=== PATIENT | male | born 1940 | race Caucasian/White ===

== ENCOUNTER → 2017-11-13 | Outpatient (CLI) | payer MEDICARE ==
--- NOTE | 2017-11-13 10:25 | RADIOLOGY IMAGING REPORT ---
FACILITY: [facility] - [place] PATIENT NAME: Cem Simeon : 1940 MR: [id number] V: [id number] EXAM DATE: ORDERING PHYSICIAN: YOBANI WOLFE TECHNOLOGIST: Location: [facility] Patient: Cem Simeon : 1940 Visit/Account:[id number] Date of Sevice: 11/13/2017 DEXA Scan Clinical history: Osteoporosis. Comparison: DEXA scan from 3 x 15. LUMBAR SPINE: The bone mineral density (BMD) measured from L1-L4 correlates with a Z-score of 1.3 and a T-score of 0.2 which is Normal as defined by the World Health Organization. The corresponding risk of fracture in the lumbar spine is Not increased compared with a young adult reference population. This value suresh s increased by 4.4 % since the prior study. More than 5% change is considered significant. HIP: Bone mineral density (BMD) measured in the LEFT total hip region correlates with a Z-score -1.3 and a T-score of -2.6 which is osteoporosis as defined by the World Health Organization. The correspondin g risk of fracture in the hip is 6-8 times increased compared to a young adult reference population. This value has decreased by 4.2 % since the prior study. More than 5% change is considered significa nt. Bone mineral density left femoral neck -2.4 Bone mineral density (BMD) measured in the Femoral Neck region measures 0.761 g/cm?. IMPRESSION: 1. Lumbar spine: Normal. There has been 4.4% increase in the bone mineral density since the previou s exam. 2. Left Total Hip: Osteoporosis. There has been 4.2% decrease in the bone mineral density since the previous exam. 3. Femoral Neck: Bone Mineral Density is 0.761 g/cm? The next DEXA scan of this patient should include the following sites: L1-L4 and the left hip. FRAX? WHO Fracture Risk Assessment Tool link: <http://www.shef.ac.uk/FRAX/tool.jsp?locationValue=9> PLEASE NOTE: 1) The World Health Organization defines low BMD as follows: T-score Normal > -1 Osteopenia < -1 and > -2.5 Osteoporosis < -2.5 without fractures Established osteoporosis < -2.5 with fractures 2) In general, you may wish to consider: Diagnosis Treatment Follow-up DEXA Normal BMD Prevention 2-3 years Osteopenia Prevention/therapy 1-2 years Osteoporosis Therapy Yearly 3) Fracture risk estimated from the T-score is more accurate for vertebral fractures (often spontane ous) than for hip fractures. Report Dictated By: Winnie Deshpande MD at 11/13/2017 9:49 AM Report E-Signed By: Winnie Deshpande MD at 11/13/2017 10:20 AM WSN:[email or web address]
== END ==
LOC: RAD 07:01
PROVIDERS: ATTEND Family Medicine
DX: Z13.820 Encounter for screening for osteoporosis (principal); M81.0 Age-related osteoporosis without current pathological fracture
CPT/HCPCS: 77080

== ENCOUNTER → 2017-12-22 | Outpatient (CLI) | payer MEDICARE ==
[~2017-12-22] MED LIST: DENOSUMAB 60 MG/1 ML SYR SUBQ ONE
[2017-12-22 09:32] VITALS: BP 116/82
== END ==
LOC: SPU 07:43
PROVIDERS: ATTEND Family Medicine
DX: M81.0 Age-related osteoporosis without current pathological fracture (principal)
CPT/HCPCS: 96372; J0897

== ENCOUNTER → 2018-06-22 | Outpatient (CLI) | payer MEDICARE ==
[2018-06-22 08:11] VITALS: BP 111/68
== END ==
LOC: SPU 07:12
PROVIDERS: ATTEND Family Medicine
DX: M81.0 Age-related osteoporosis without current pathological fracture (principal)
CPT/HCPCS: 96372; J0897

== ENCOUNTER → 2018-11-17 | Outpatient (CLI) | payer MEDICARE ==
--- NOTE | 2018-11-17 15:06 | RADIOLOGY IMAGING REPORT ---
[place] [facility] [place]: Cem Simeon : 1940 MR: [id number] V: [id number] EXAM DATE: ORDERING PHYSICIAN: YOBANI WOLFE TECHNOLOGIST: [place] [facility] [place]: Cem Simeon : 1940 Visit/Account:[id number] Date of Sevice: 11/17/2018 DEXA Scan Clinical history: Osteoporosis. Comparison: DEXA scan from 11/13/2017. LUMBAR SPINE: The bone mineral density (BMD) measured from L1-L4 correlates with a Z-score of 2.2 and a T-score of 1.1 which is Normal as defined by the World Health Organization. The corresponding risk of fracture in the lumbar spine is Not increased compared with a young adult reference population. This value suresh s increased by 9.1 % since the prior study. More than 5% change is considered significant. HIP: Bone mineral density (BMD) measured in the LEFT total hip region correlates with a Z-score -1.2 and a T-score of -2.6 which is osteoporosis as defined by the World Health Organization. The correspondin g risk of fracture in the hip is 6-8 times increased compared to a young adult reference population. This value has increased by 1.1 % since the prior study. More than 5% change is considered significa nt. T score left femoral neck -2.7 Bone mineral density (BMD) measured in the Femoral Neck region measures 0.714 g/cm?. IMPRESSION: 1. Lumbar spine: Normal. There has been 9.1% increase in the bone mineral density since the previou s exam. 2. Left Total Hip: Osteoporosis. There has been 1.1% increase in the bone mineral density since the previous exam. 3. Femoral Neck: Bone Mineral Density is 0.714 g/cm? The next DEXA scan of this patient should include the following sites: L1-L4 and the left hip. FRAX? WHO Fracture Risk Assessment Tool link: <http://www.shef.ac.uk/FRAX/tool.jsp?locationValue=9> PLEASE NOTE: 1) The World Health Organization defines low BMD as follows: T-score Normal > -1 Osteopenia < -1 and > -2.5 Osteoporosis < -2.5 without fractures Established osteoporosis < -2.5 with fractures 2) In general, you may wish to consider: Diagnosis Treatment Follow-up DEXA Normal BMD Prevention 2-3 years Osteopenia Prevention/therapy 1-2 years Osteoporosis Therapy Yearly 3) Fracture risk estimated from the T-score is more accurate for vertebral fractures (often spontane ous) than for hip fractures. Report Dictated By: Winnie Deshpande MD at 11/17/2018 2:59 PM Report E-Signed By: Winnie Deshpande MD at 11/17/2018 3:01 PM WSN:[email or web address]
== END ==
LOC: RAD 02:14
PROVIDERS: ATTEND Family Medicine
DX: M81.0 Age-related osteoporosis without current pathological fracture (principal)
CPT/HCPCS: 77080

== ENCOUNTER → 2018-12-21 | Outpatient (CLI) | payer MEDICARE ==
[2018-12-21 08:27] VITALS: BP 135/59
== END ==
LOC: SPU 08:08
PROVIDERS: ATTEND Family Medicine
DX: M81.0 Age-related osteoporosis without current pathological fracture (principal)
CPT/HCPCS: 96372; J0897

== ENCOUNTER 2019-01-21 00:56 | Observation (INO) | payer MEDICARE ==
[2019-01-21] VITALS (25 sets, daily range): BP systolic 128–170; BP diastolic 52–81
[~2019-01-21] VITALS: Ht 162.6 cm; Wt 63.5 kg
[~2019-01-21 00:56] MED LIST changes: +ACETAMINOPHEN 500 MG TAB PO ONE; +ASPI81TA94 PO; +CALC-83 PO; +CHOL200074 PO; +DEN60I SUBQ; -DENOSUMAB 60 MG/1 ML SYR SUBQ ONE; +DILT240C4 PO; +LUTE20CA11 PO; +PREGABALIN 150 MG CAPSULE PO ONE; +SIMV-49 PO; +ceFAZolin(*) 2GM/D5W 50ML 50 ML IVPB ONE
[2019-01-21] MEDS ORDERED: FAMOTIDINE 20 MG TAB PO ONE (06:45)
[2019-01-21] MEDS ORDERED: NORMOSOL R SOLN(*) 1000 ML BAG 1,000 ML IV PRN (06:45)
[2019-01-21] MEDS ORDERED: VANCOMYCIN 1 GM ADDVIAL 1 GM in NS(*) 0.9% 250 ML ADDVAN BAG 250 ML IVPB ONE (06:45)
[2019-01-21] MEDS ORDERED: PREGABALIN 75 MG CAPSULE PO ONE (06:45)
[2019-01-21] MEDS ORDERED: MIDAZOLAM 2 MG/2 ML VIAL IVP PRN (06:45)
[2019-01-21] MEDS ORDERED: LIDOCAINE/SOD BICARB 8.4% SYR ID ONE (06:45)
[2019-01-21] MEDS ORDERED: ACETAMINOPHEN 500 MG TAB PO ONE (06:45)
--- NOTE | 2019-01-21 06:55 | EKG ---
FACILITY: [facility] - [place] PATIENT NAME: ANTONINO HAWK : [id number] MR: [id number] V: [id number] EXAM DATE: ORDERING PHYSICIAN: JESSICA DAVIS TECHNOLOGIST: LUCILLE Test Reason : PRE OP Blood Pressure : / mmHG Vent. Rate : 062 BPM Atrial Rate : 062 BPM P-R Int : 144 ms QRS Dur : 096 ms QT Int : 424 ms P-R-T Axes : 048 -15 069 degrees QTc Int : 430 ms Normal sinus rhythm Normal ECG No previous ECGs available Confirmed by Drake Alcantar ([id number]) on 01/21/2019 7:56:59 PM Referred By: TETE Confirmed By:Drake Lowry
[2019-01-21 06:56] LABS: PLATELET COUNT, AUTOMATED 166 K/uL (150-450)
[2019-01-21] MEDS ORDERED: DEXAMETHASONE SOD 4 MG/ML VIAL ONE (07:04)
[2019-01-21] MEDS ORDERED: ROCURONIUM BROM 10 MG/ML 10 ML ONE (07:04)
[2019-01-21] MEDS ORDERED: SUGAMMADEX SOD 200 MG/2 ML SDV ONE (07:04)
[2019-01-21] MEDS ORDERED: LIDOCAINE MPF 1% 5 ML VIAL ONE (07:04)
[2019-01-21] MEDS ORDERED: PROPOFOL EMUL(*) 10MG/ML 20 ML 20 ML ONE (07:04)
[2019-01-21] MEDS ORDERED: ONDANSETRON 4 MG/2 ML VIAL ONE (07:04)
[2019-01-21] MEDS ORDERED: fentaNYL CITR 250 MCG/5 ML AMP ONE (07:04)
[2019-01-21] MEDS ORDERED: KETAMINE HCL-NS 50 MG/5 ML SYR ONE (07:07)
[2019-01-21] MEDS ORDERED: ROPIVACAINE 0.5% 20 ML VIAL ONE (07:35)
[2019-01-21] MEDS ORDERED: NS(*) 0.9% 1000 ML BAG 1,000 ML IV PRN (10:21)
[2019-01-21] MEDS ORDERED: ONDANSETRON 4 MG/2 ML VIAL IVP PRN (10:25)
[2019-01-21] MEDS ORDERED: FLUSH 10 ML SYR IVP PRN (10:25)
[2019-01-21] MEDS ORDERED: ACETAMINOPHEN 325 MG TAB PO PRN (10:25)
[2019-01-21] MEDS ORDERED: MORPHINE 2 MG/ML SYR IVP PRN (10:25)
--- NOTE | 2019-01-21 10:35 | Post Operative Progress Note ---
Post Operative Progress Note Date: January 21, 2019 Time: 10:26 Surgeon: Marla Dictation number: [id number] Anesthesia: GETA by Dr. Baker Pre-Op Diagnosis: Recurrent RIH Post-Op Diagnosis: YAHAIRA Findings: C/W dx, indirect hernia Procedure(s): Robotic RIH repair Specimen Removed:(May be N/A): None Complications: None Fluids: See anesthesia record Estimated Blood Loss: Minimal Date OP Note Dictated: January 21, 2019 Time OP Note Dictated: 10:28 LINDA EPSTEIN MD January 21, 2019 10:35
--- NOTE | 2019-01-21 11:11 | OPERATIVE REPORT 1 ---
EVENT DATE: January 21, 2019 SURGEON: Maikel Gutiérrez MD ANESTHESIOLOGIST: Denzel Waddell MD ANESTHESIA: General endotracheal. PREOPERATIVE DIAGNOSIS Recurrent right inguinal hernia. POSTOPERATIVE DIAGNOSIS Recurrent right inguinal hernia. PROCEDURE Robotic right inguinal hernia repair with mesh. COMPLICATIONS None. CONDITION Stable. ESTIMATED BLOOD LOSS Minimal. INDICATIONS This is a 78-year-old who presented to my office with a bulge in his right groin that he says was getting larger and starting to cause him some discomfort. He had it repaired twice previously over the last 40 to 50 years; the last one was about 20 years ago and they were all the open approach. He was requesting to have this hernia repaired. DESCRIPTION OF PROCEDURE The patient was brought to the operating room, placed supine on the operating table. General endotracheal anesthesia was administered and his abdomen was prepped and draped in sterile fashion. Time out was completed and I injected the left subcostal skin in the mid clavicular line with 0.5% ropivacaine plain and made a transverse 8 mm incision and then used a Veress needle and inserted into the abdominal cavity and insufflated the abdominal cavity to a pressure of 15 mmHg. I then used an 8 mm robotic optical trocar with the camera focused and inserted this into the insufflated abdomen without any problems and then under direct visualization placed an 8 mm robotic port in the right upper quadrant mid clavicular line and a third one in the epigastric midline. I inspected the groins and there was an obvious hernia on the right. I could not see the left inguinal area because it was covered with sigmoid colon, which was adherent to the abdominal wall and covering up where the inguinal opening would be. I then inserted a right sided piece of ProGrip piece of mesh and V-Loc absorbable suture in the peritoneal cavity and then the patient was placed in Trendelenburg and the robot was brought in and docked and then targeting and our instruments inserted and then I went to the console and continued the surgery. I divided the peritoneum from just medial to the anterior superior iliac spine on the right all the way across the midline and then stripped this down from the overlying rectus and transversus abdominis muscles and came into contact with the previous mesh, which I stripped away. Through some tedious dissection, ultimately I was able to strip the mesh away from the epigastric vessels as well as the pubic bone and Gaston's ligament and then cleaned off the ileopubic tract laterally. After everything was dissected free and I could see the peritoneal edge quite clearly and it was stripped way down, I then pulled the hernia sac out of the inguinal canal and through dissection was able to separate it from the cord structures The vas deferens and gonadic vessels were identified and preserved. The sac was quite long but ended blindly and I was able to strip the whole thing away from the cord structures and then I everted it back into the peritoneal cavity. I then placed the mesh into the preperitoneal space and deployed it so it laid nice and flat and covered the entire myopectineal orifice with several centimeters on all sides. The peritoneal edge inferiorly was outside of where the mesh was located and then once I was happy with the mesh placement I sewed the peritoneal incision back together with running V-Loc absorbable suture. After this was completed, I had the instruments removed, the robot was undocked and I scrubbed back in and desufflated the abdomen and removed the ports. The needle was removed prior to undocking the robot under direct visualization. After I was scrubbed back in and the robot was undocked, I closed the port site incisions with 4-0 Monocryl subcuticular sutures. Skin was cleaned, dried and Steri-Strips applied, followed by sterile surgical dressings. The patient was awakened and extubated in the operating room and transported to the recovery room in stable condition, having tolerated the procedure without any apparent problems. TERRELL
--- NOTE | 2019-01-21 13:35 | NUR ---
Physical Therapy Impression PT/OT co eval complete. Pt completed bed mobility with HOB raised and SBA. Once seated at EOB, pt with minor LOB, requiring Carol to stay upright. Pt reports dizziness when seated at EOB, BP WNL. CGA for stand pivot transfer from bed to chair with RW. Pt reports improvement of dizziness once up in chair. Physical Therapy Goals 1: pt to complete bed mobility with Kiesha 2: pt to complete transfers with SBA and appropriate AD 3: pt to ambulate 150' with SBA and appropriate AD Patient's Goals
[2019-01-21] MEDS ORDERED: LUTE20CA11 PO (14:03)
[2019-01-21] MEDS ORDERED: LUTE1CAP6 PO (14:04)
--- NOTE | 2019-01-21 14:31 | NUR ---
Occupational Therapy Impression Initial OT/PT evaluation completed. SBA supine to sit. CGA ambulation x5ft with RW. Seated up in chair at end of tx for lunch. VSS throughout. No report of pain. Pt likely to discharge with no needs. Occupational Therapy Goals 1) Pt will be independent UB/LB dressing. 2) Pt will be independent grooming/hygiene. 3) Pt will be independent toilet task. Patient's Goal
[2019-01-21] MEDS: CALCIUM CITRATE/ERGOCALCIFEROL PO SCH (20:38)
[2019-01-21] MEDS: FAMOTIDINE 20 MG TAB PO SCH (20:38)
[2019-01-21] MEDS: DOCUSATE SODIUM 100 MG CAP PO SCH (20:40)
[2019-01-21] MEDS ORDERED: DILTIAZEM CD 120 MG CAPCR PO SCH (21:00)
[2019-01-21] MEDS ORDERED: SIMVASTATIN 20 MG TAB PO SCH (21:00)
[2019-01-22 04:19] VITALS: BP 139/64
[2019-01-22 06:55] VITALS: BP 139/59
[2019-01-22] MEDS ORDERED: DOCU-202 PO (07:51)
--- NOTE | 2019-01-22 07:55 | Short(Outpt) Discharge Summary ---
Discharge Summary Reason for Hosp/Final Diag: (1) Recurrent right inguinal hernia Status: Chronic Hospital Course & Plan: 01/22/19: POD#1 s/p robotic RIH repair (recurrent). Doing well. Not much pain. Ambulating and mobilizing without problems. D/C to home this morning. Departure Discharge to: Home, Self Care Discharge Instructions Home Meds Active Scripts Docusate Sodium (DOCUSATE SODIUM) 100 Mg Capsule, 1 CAP PO BID, #30 CAPSULE 0 Refills Prov:LINDA EPSTEIN MD 01/22/19 Reported Medications Lutein/Zeaxanthin (Lutein-Zeaxanthin 20-1 mg Sfgl) 20 Mg-1,000 Mcg Capsule, 1 TAB PO QDAY 01/21/19 Diltiazem Hcl (DILTIAZEM 24HR CD) 240 Mg Cap.er.24h, 240 MG PO HS, CAP.SR.24H 01/14/19 Simvastatin (SIMVASTATIN) 20 Mg Tablet, 10 MG PO HS, TAB 01/14/19 Denosumab (PROLIA) 60 Mg/1 Ml Injs, 60 MG SUBQ 01/14/19 Calcium Citrate/Vitamin D3 (Calcium Citrate +Vit D3 Tablet) 200 Mg Calcium-250 U nit Tablet, 630 MG PO BID 01/14/19 Lutein (LUTEIN) 20 Mg Capsule, 20 MG PO DAILY, CAPSULE 01/14/19 Cholecalciferol (Vitamin D3) (VITAMIN D-3) 2,000 Unit Capsule, 4000 UNITS PO DAILY, CAPSULE 01/14/19 Aspirin (ASPIRIN) 81 Mg Tab.chew, 81 MG PO QDAY, TAB.CHEW 01/14/19 Discontinued Reported Medications Lutein (LUTEIN) 20 Mg Capsule, 20 MG PO QDAY, CAPSULE 01/21/19 Follow up Referrals: General Surgery - 02/03/19 @ Surgery, General with LINDA EPSTEIN MD You have a follow up appointment scheduled with Dr. Epstein on 02/03/19, at 10:00am. Diet: Regular Activity: No Heavy Lifting Special Instructions: You may remove the white surgical dressings on 01/23/19, then you can shower. After showering, leave the incisions open to air but leave the steristrips in place until they fall off on their own. Do not immerse the incisions for 2 weeks. Avoid any activity that involves straining or lifting more than 10 pounds for 2 weeks after surgery. LINDA EPSTEIN MD January 22, 2019 07:55
[2019-01-22] MEDS: DOCUSATE SODIUM 100 MG CAP PO SCH (08:42)
[2019-01-22] MEDS: CALCIUM CITRATE/ERGOCALCIFEROL PO SCH (08:42)
[2019-01-22] MEDS: FAMOTIDINE 20 MG TAB PO SCH (08:43)
[2019-01-22] MEDS ORDERED: LUTEIN 20 MG PO SCH (09:00)
[2019-01-22] MEDS ORDERED: ASPIRIN 81 MG CHEW PO SCH (09:00)
[2019-01-22] MEDS ORDERED: CHOLECALCIFEROL 1000 UNIT TAB PO SCH (09:00)
== END 2019-01-22 07:49 | disposition home or self-care (01) ==
LOC: OR 00:56 → MED 11:30 → INTOOBSV 11:30
PROVIDERS: ADMIT Surgery; ATTEND Surgery
DX: K40.91 Unilateral inguinal hernia, without obstruction or gangrene, recurrent (principal); I10 Essential (primary) hypertension; Z86.718 Personal history of other venous thrombosis and embolism
CPT/HCPCS: 36415; 49650; 85025; 93005; 97161; 97165; A9270; C1781; G0378; J1100; J2001; J2405; J2704; J2795; J3010; J3370; J3490; J7050; S2900